=== PATIENT | female | born 1995 | race Caucasian/White ===

== ENCOUNTER 2017-07-18 22:18 | Emergency (ER) | payer SELFPAY ==
[~2017-07-18] VITALS: Ht 149.9 cm; Wt 63.5 kg
[2017-07-18 22:29] VITALS: BP 108/76
--- NOTE | 2017-07-18 23:41 | NUR ---
PT LISA TOLENTINO. TAKEN TO BED 11
--- NOTE | 2017-07-18 23:45 | NUR ---
21/F BIBA FOR ETOH. PT AROUSABLE TO VOICE AND OPEN EYES. PER EMS WAS FOUND IN A BAR. NO ACUTE DISTRESS NOTED AT THIS TIME. 20RR EVEN AND UNLABORED. 20G ON LAC ESTABLISHED IN FIELD. UNKNOWN PMH
[2017-07-18] MEDS ORDERED: ONDANSETRON 4 MG/2 ML VIAL IVP ONE (23:50)
[2017-07-18] MEDS ORDERED: NACL 0.9% 1,000 ML IV ONE (23:50)
[2017-07-19 00:39] LABS: HEMATOCRIT 42.2 % (36-48); HEMOGLOBIN 14.1 g/dL (12.0-16.0); MEAN CORPUSCULAR HEMOGLOBIN 28 pg (27-31); MEAN CORPUSCULAR HGB CONC 33 g/dL (33-37); MEAN CORPUSCULAR VOLUME 82 fL (80-94); PLATELET COUNT (AUTO) 268 K/uL (140-450); RED BLOOD CELL COUNT(AUTO) 5.14 MIL/uL (4.20-5.40); RED CELL DISTRIBUTION WIDTH 12.3 % (11.6-13.7); WHITE BLOOD COUNT (AUTO) 11.2 K/uL (4.5-11.0)
--- NOTE | 2017-07-19 00:45 | NUR ---
Patient appears to be resting comfortably in bed. Vital Signs within normal limits. Respirations even and unlabored.
[2017-07-19 00:47] LABS: ALBUMIN 3.7 g/dL (3.4-5.0); ANION GAP 9.9 (8-16); CREATININE 0.8 mg/dL (0.6-1.3); POTASSIUM 3.9 mmol/L (3.5-5.1); TOTAL BILIRUBIN 0.2 mg/dL (0.0-1.0)
--- NOTE | 2017-07-19 01:00 | NUR ---
UNABLE TO COLLECT URINE AT THIS TIME. ER MD CORDOVA AWARE, NO FURTHER ORDERS.
[2017-07-19 01:07] LABS: LYMPHOCYTES % (MANUAL) 8 % (20-46); MONOCYTES % (MANUAL) 4 % (5-12)
--- NOTE | 2017-07-19 01:52 | NUR ---
Patient appears to be resting comfortably in bed. Vital Signs within normal limits. Respirations even and unlabored.
--- NOTE | 2017-07-19 02:20 | NUR ---
PT AWAKE, AOX4, GCS 15. REQUESTING TO GO HOME. PT AMBULATES STEADILY. CALLED [employer] FOR [employer], PT SELF-PAY
--- NOTE | 2017-07-19 02:44 | NUR ---
Patient presented to facility under the influence of Alcohol. Patient is currently ambulatory with steady gait, able to walk unassisted. Positive gag reflex. Alert and oriented. Is not driving self for discharge out of facility. IV removed, catheter intact and site benign. Applied folded 4x4 gauze and tape to stop bleeding.
[2017-07-19 02:56] VITALS: BP 128/72
== END 2017-07-19 02:44 | disposition home or self-care (01) ==
LOC: MED 22:18
DX: F10.129 Alcohol abuse with intoxication, unspecified (principal)
CPT/HCPCS: 80053; 82150; 83690; 84703; 85025; 96361; 96374; 99284; G0482; J2405; J7030